=== PATIENT | female | born 1960 | race Caucasian/White ===

== ENCOUNTER 2020-05-05 05:59 | Day surgery (SDC) | payer OTHER ==
--- NOTE | 2020-05-04 14:01 | PCM.PREANE ---
Preanesthetic Assessment - Procedure Proposed Procedure: Right SVA, Rotator Cuff Repair, Subacromial decompression with debridement. 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), Easy Bleeding, Thyroid Problems (Hypothyroid), Neck Pain (stiffness), Anxiety (History of panic attacks) - Physical Assessment NPO Status Date: 05/04/20 NPO Status Time: 21:00 Vital Signs: HR:69 Sat:96% Temp:97 Resp:16 B/P:141/67 Height: 1.6 m Weight: 75 kg ASA Class: 2 Mental Status: Alert & Oriented x3 Airway Class: Mallampati = 2 Dentition: Reports: Normal Dentition, Caries Thyro-Mental Finger Breadths: 3 Mouth Opening Finger Breadths: 3 ROM/Head Extension: Full Lungs: Clear to Auscultation, Normal Respiratory Effort Cardiovascular: Regular Rate, Regular Rhythm, No Murmurs - Lab Values: Laboratory Last Values SARS-CoV-2 (PCR) Not detected (NOT DETECT) 05/02/20 10:45 All labs reviewed and noted and within acceptable ranges to proceed with scheduled procedure. - Imaging/EKG Impressions: 2018: Stress Echocardiogram: EF: 55-59% EKG: SR rate 59, abnormal r wave progression. - Allergies Allergies/Adverse Reactions: Allergies Allergy/AdvReac Type Severity Reaction Status Date / Time No Known Allergies Allergy Verified 05/04/20 15:07 - Anesthesia Plan Pre-Op Medication Ordered: Other (scopalamine patch 1.5mg placed in preop at 0605) - Acknowledgements Anesthesia Type Planned: General Anesthesia (Right ISB under US guidance for post operative pain control requested by Dr. Livingston.) Pt an Appropriate Candidate for the Planned Anesthesia: Yes Alternatives and Risks of Anesthesia Discussed w Pt/Guardian: Yes Pt/Guardian Understands and Agrees with Anesthesia Plan: Yes PreAnesthesia Questionnaire - HOME MEDS Home Medications: Home Meds Levothyroxine [Synthroid] 50 mcg PO ACBREAKFAST 05/04/20 [History] lisinopriL [Lisinopril] 10 mg PO DAILY 05/04/20 [History] - CURRENT (IN HOUSE) MEDS Current Meds: Current Medications Epinephrine HCl (Adrenalin) 3 mg IRR ONETIME JILL Stop: 05/05/20 23:00 Lactated Ringer's (Ringers, Lactated) 1,000 mls @ 125 mls/hr IV ASDIRECTED JILL Stop: 05/05/20 23:00 Lidocaine/Sodium Bicarbonate (Buffered Lidocaine 1% In Ns 8.4%) 0.25 ml IDERM ONETIME PRN PRN Reason: Prior to IV Start Stop: 05/05/20 18:00 Sodium Chloride (Saline Flush) 10 ml FLUSH ASDIRECTED PRN PRN Reason: Keep Vein Open Stop: 05/05/20 18:00
[~2020-05-05 05:59] MED LIST: EPINEPHrine 1 MG/ML SDV ONE; Lidocaine 1% 2 ML ONE; Ropivacaine 0.5% 5 MG/ML 30 ML SDV ONE; Scopolamine 1.5 MG Transdermal Patch TRDERM PRN
--- NOTE | 2020-05-05 05:59 | PCM.SN.2 ---
- Free Text/Narrative Note: Date: 05/05/2020 Time Out: 0700 Start: 714 Stop: 714 Surgical Procedure: Right shoulder video arthroscopy with rotator cuff repair and any indicated procedures. Diagnosis Right Shoulder rotator cuff tear Current Procedure: Right interscalene block under US guidance for postoperative pain control requested by Dr. Livingston. Patient chart reviewed, risk/benefits discussed with patient, consent obtained. Patient positioned supine, monitors/alarms on, oxygen placed via nasal cannula at 2 LPM. IV sedation administered: Versed 2mg IV, Fentanyl 50mcg IV given in preop prior to block placement. Right shoulder prepped with two chloropreps. Sterile drapes placed with aseptic technique noted. Under US guidance, right subclavian artery visualized along with the right brachial plexus. Plexus followed up to C6 cricoid level, and area localized with 2mls of 1% lidocaine. 22gauge 2 inch stimiplex needle advanced under US with 0.6mV with stimulation of biceps noted. Good stimulation noted with decreased voltage and absent at 0.3mVs. 1ml of Normal Saline injected with loss of stimulation noted to confirm needle not placed intraneurally. Incremental dosing of 5mls with negative aspiration noted prior to each injection of 0.5% ropivacaine with 1:200,000 epinephrine. Total volume=30mls. Please refer to nurses noted for vital signs. Nissa Navas CRNA
[2020-05-05] MEDS ORDERED: EPINEPHrine 1 MG/ML 30 ML MDV IRR SCH (06:00)
[2020-05-05] MEDS ORDERED: Propofol 200 MG/20 ML SDV ONE (06:06)
[2020-05-05] MEDS ORDERED: Ondansetron 4 MG/2 ML SDV ONE (06:06)
[2020-05-05] MEDS ORDERED: Lidocaine 1% 4 ML ONE (06:06)
[2020-05-05] MEDS ORDERED: ceFAZolin 1 GM Vial ONE (06:06)
[2020-05-05] MEDS ORDERED: Midazolam 1 MG/ML 2 ML SDV ONE (06:06)
[2020-05-05] MEDS ORDERED: Rocuronium 50 MG/5 ML Vial ONE (06:06)
[2020-05-05] MEDS ORDERED: Dexamethasone 4 MG/ML 5 ML MDV ONE (06:06)
[2020-05-05] MEDS ORDERED: Ketorolac 30 MG/ML SDV ONE (06:06)
[2020-05-05] MEDS ORDERED: Lactated Ringers 1,000 ML ONE (06:06)
[2020-05-05] MEDS ORDERED: fentaNYL 250 MCG/5 ML SDV ONE (06:07)
[2020-05-05] MEDS ORDERED: Bupivacaine 0.25% 10 ML SDV ONE (06:22)
[2020-05-05] MEDS ORDERED: Sodium Chloride 0.9% 10 ML Syringe FLUSH PRN (07:00)
[2020-05-05] MEDS ORDERED: Lidocaine 1%/Sod Bicarbonate in NS 8.4% 1 ML Syringe IDERM PRN (07:00)
[2020-05-05] MEDS ORDERED: Lactated Ringers 1,000 ML IV SCH (07:00)
[2020-05-05] MEDS ORDERED: Haloperidol Lactate 5 MG/ML SDV IVPUSH ONE (08:27)
[2020-05-05] MEDS ORDERED: ePHEDrine 50 MG/ML SDV IVPUSH PRN (08:27)
[2020-05-05] MEDS ORDERED: fentaNYL 100 MCG/2 ML SDV IVPUSH PRN (08:27)
[2020-05-05] MEDS ORDERED: Ondansetron 4 MG/2 ML SDV IVPUSH PRN (08:27)
[2020-05-05] MEDS ORDERED: diphenhydrAMINE 50 MG/ML SDV IVPUSH PRN (08:27)
[2020-05-05] MEDS ORDERED: HYDROmorphone 0.5 MG/0.5 ML Syringe IVPUSH PRN (08:28)
--- NOTE | 2020-05-05 09:51 | PCM.POSTAN ---
POST ANESTHESIA ASSESSMENT - MENTAL STATUS Mental Status: Alert - VITAL SIGNS Vital Signs: Last Vital Signs Temp 97.2 05/05/20 09:45 Pulse 85 05/05/20 09:45 Resp 12 05/05/20 09:45 BP 152/59 05/05/20 09:45 Pulse Ox 99 05/05/20 09:45 - RESPIRATORY Respiratory Status: Respiratory Rate WNL, Airway Patent, O2 Saturation Stable, Supplemental Oxygen - CARDIOVASCULAR CV Status: Pulse Rate WNL, Blood Pressure Stable - GASTROINTESTINAL GI Status: No Symptoms - POST OP HYDRATION Hydration Status: Adequate & Stable
--- NOTE | 2020-05-09 17:38 | PCM.OPNOTE ---
- General Post-Op/Procedure Note Date of Surgery/Procedure: 05/05/20 Operative Procedure(s): right shoulder video arthroscopy with large rotator cuff repair, subacromial decompression and extensive debridement with biceps tenotomy Pre Op Diagnosis: right shoulder rotator cuff tear with impingement Post-Op Diagnosis: Same with biceps tendinopathy Anesthesia Technique: General ET Tube, Regional Block Primary Surgeon: Derrell Livingston Anesthesia Provider: Nissa Navas Registered Vascular Technologist (Rvt): Kathy Moncada in mLs: 5 Complications: None Condition: Good
--- NOTE | 2020-05-12 11:11 | OR ---
DATE OF OPERATION: 05/05/2020 SURGEON: Derrell Livingston MD OPERATION PERFORMED: Right shoulder video arthroscopy with large rotator cuff repair, subacromial decompression, and extensive debridement with biceps tenotomy. PREOPERATIVE DIAGNOSIS: Right shoulder rotator cuff tear with impingement. POSTOPERATIVE DIAGNOSIS: Right shoulder rotator cuff tear with impingement with biceps tendinopathy. ANESTHESIA: General endotracheal intubation with regional interscalene block. ANESTHESIA PROVIDER: Nissa Navas CRNA SUBCONTRACT ADMINISTRATOR: Kathy Moncada PA-C ESTIMATED BLOOD LOSS: 5 mL. COMPLICATIONS: None. CONDITION: Stable. DESCRIPTION OF PROCEDURE: The patient was identified in the preoperative holding area. Proper site was marked and identified by the surgeon. The patient was taken back to the operative theater where after adequate anesthesia the patient was placed in the lazy left lateral decubitus position. Wedge was placed posteriorly. All bony prominences were well padded. The right upper extremity was then sterilely prepped and draped in the usual sterile fashion. OR time-out was performed. The patient received 2 g IV Ancef and 12 pounds of traction was applied to the right upper extremity. Standard posterior incision was made. Scope trocar was introduced to the glenohumeral joint. The patient was noted to have a large rotator cuff tear of the supraspinatus as well as the anterior portion of the infraspinatus with minimal to no retraction. The patient had no chondromalacia of the glenohumeral joint. Biceps tendon was noted to be significantly frayed as well as tendinopathy noted. Anterior portal was created with the use of an outside-in technique with a spinal needle and a biceps tenotomy was performed and debridement of the synovitis as well as the superior labrum was then done at this time. Attention was turned to the subacromial space. A lateral portal was then created. A significant debridement of the subacromial space was done of all synovitis as well as fraying of the rotator cuff. A good bony bleeding bed was then created over the greater tuberosity using a 4.0 full-radius omer. Two [place] medial row all suture anchors were then placed and 12 limbs of suture were passed from anterior to posterior in similar fashion. Six limbs were then brought out through a lateral row anchor anteriorly and then 6 limbs were brought posteriorly through a lateral row for cross velasco compression across the tear site. It had good convergence of the supra and infraspinatus with good compression across the site. All suture limbs were then cut. A subacromial decompression was then done with a 4.0 full-radius omer. The patient had a type 2 acromion and it was brought back to a smooth border with the posterior rim of the acromion. Excess saline was drained from the shoulder. 3-0 nylon suture was used for closure of the portal incisions. The patient was placed in a sterile soft dressing and a pillow sling and sent to the PACU in stable condition. MARGARETH /[id number]
== END 2020-05-05 12:17 | disposition home or self-care (01) ==
LOC: JD.SDS 05:59
PROVIDERS: ATTEND Orthopaedic Surgery
DX: M75.101 Unspecified rotator cuff tear or rupture of right shoulder, not specified as traumatic (principal); M25.811 Other specified joint disorders, right shoulder; F41.9 Anxiety disorder, unspecified; E03.9 Hypothyroidism, unspecified; I10 Essential (primary) hypertension; E22.1 Hyperprolactinemia; E78.2 Mixed hyperlipidemia; G89.18 Other acute postprocedural pain; Z01.812 Encounter for preprocedural laboratory examination; Z79.899 Other long term (current) drug therapy; Z98.890 Other specified postprocedural states; Z20.828 Contact with and (suspected) exposure to other viral communicable diseases
CPT/HCPCS: 29823; 29826; 29827; 87635; 93005; A9270; C1713; J0171; J0690; J1100; J1885; J2001; J2250; J2405; J2704; J2710; J2795; J3010; J7120; 01630; 64415; J2370; J3490; U0002